=== PATIENT | male | born 1950 | race Caucasian/White ===

== ENCOUNTER 2017-03-22 15:40 | Emergency (ER) | payer MEDICARE, OTHER ==
[~2017-03-22] VITALS: Ht 185.4 cm; Wt 110.7 kg
[~2017-03-22 15:40] MED LIST: ALLOPURINOL300 MG PO; AMBIEN10 MG PO; AMLODIPINE BESYL5 MG PO; BYSTOLIC5 MG PO; COMBIVENT RESPIM4 GM INH; COZAAR50 MG PO; INDOMETHACIN25 MG PO; KLOR-CON20 MEQ PO; LEVOTHYROXINE50 MCG PO; LIPITOR10 MG PO; MAG-OXIDE400 MG PO; PREDNISONE5 MG PO; SYMBICORT 16010.2 GM INH; TRIAMTERENE-HC1 EAC1 PO; VITAMIN D-32000 UNIT PO
[2017-03-22] MEDS ORDERED: PREDNISONE20 MG PO (16:44)
[2017-03-22] MEDS ORDERED: LEVOTHYROXINE175 MCG PO (16:45)
[2017-03-22] MEDS ORDERED: SILDENAFIL20 MG PO (16:45)
[2017-03-22] MEDS ORDERED: OXYCODON-ACETA1 EACH PO (19:34)
== END 2017-03-22 19:45 | disposition home or self-care (01) ==
LOC: ED 15:40
DX: S22.31XA Fracture of one rib, right side, initial encounter for closed fracture (principal); S30.1XXA Contusion of abdominal wall, initial encounter; S20.211A Contusion of right front wall of thorax, initial encounter; J94.2 Hemothorax; J45.909 Unspecified asthma, uncomplicated; I10 Essential (primary) hypertension; E78.00 Pure hypercholesterolemia, unspecified; Z90.49 Acquired absence of other specified parts of digestive tract; Z88.8 Allergy status to other drugs, medicaments and biological substances; Z79.52 Long term (current) use of systemic steroids; Z79.899 Other long term (current) drug therapy; X58.XXXA Exposure to other specified factors, initial encounter
CPT/HCPCS: 71250; 71260; 74176; 74177; 80053; 85025; 85379; 99284; Q9967